=== PATIENT | female | born 1945 | race Caucasian/White ===

== ENCOUNTER → 2017-02-17 | Day surgery (SDC) | payer MEDICARE ==
[~2017-02-17] VITALS: Ht 154.9 cm; Wt 97.0 kg
[~2017-02-17] MED LIST: 0.9% Sodium Chloride 1,000 ML IV SCH; ACET325T51 PO; OMEP20TA86 PO; Sodium Chloride LOK Flush 10 mL Syringe IV PRN; fentaNYL-PF 50 mCg/mL 2 mL Inj IVPUSH PRN
[2017-02-17 12:17] VITALS: BP 149/87; PULSE 76; RESP 16; O2SAT 99
[2017-02-17 12:56] VITALS: BP 105/72; PULSE 68; RESP 15; O2SAT 96
[2017-02-17 13:06] VITALS: BP 114/61; PULSE 62; RESP 15; O2SAT 95
[2017-02-17 13:24] VITALS: BP 124/60; PULSE 65; RESP 15; O2SAT 96
--- NOTE | 2017-02-17 13:38 | ENDO ---
[address] [address] ENDOSCOPY PROCEDURE PATIENT: SELAM GROVER : 1945 MR#: [id number] ADMIT: 02/17/2017 JOB ID: [id number] DATE OF SERVICE: 02/17/2017 OPERATION: Esophagogastroduodenoscopy with biopsy. PREOPERATIVE DIAGNOSIS(ES): Epigastric pain. POSTOPERATIVE DIAGNOSIS(ES): Small hiatal hernia. ANESTHESIA: Fentanyl 75 mcg and Versed 4 mg IV administered. COMPLICATIONS: None. BLOOD LOSS: Minimal. DESCRIPTION OF PROCEDURE: After risks and benefits explained to the patient, informed consent was obtained. After anesthesia administered, upper endoscope was inserted into the mouth and intubated the esophagus, stomach, second portion of duodenum. Mucosa carefully examined. After procedure was done, the scope withdrawn and procedure terminated. FINDINGS: Upon inspection of the esophagus, esophagus was normal without masses, ulcers, or lesions. Z-line located 35 cm from incisors. Upon entry in the stomach, the stomach was normal without masses, ulcers, or lesions. Retroflexion showed small hiatal hernia. Duodenal bulb, first, second and third portion antrum and body of the stomach. IMPRESSION: Small hiatal hernia. RECOMMENDATION: Await pathology results. Follow up in GI clinic as needed.
--- NOTE | 2017-02-20 13:38 | PATH ---
SURGICAL PATHOLOGY Attending Physician:Marquez Scherer MD CASE STATUS: Signed Out PATIENT NAME: SELAM GROVER PID: [id number] : 1945 DATE COLLECTED:02/17/2017 21:57 SPECIMEN: 1: Stomach, Antrum, Biopsy 2: Gastric, Biopsy CLINICAL HISTORY: RULE OUT H.PYLORI 1). ANTRUM BIOPSY 2). GASTRIC BODY BIOPSY FINAL DIAGNOSIS: 1. Antrum, Biopsy: Gastric antral mucosa with reactive gastropathy. Negative for Helicobacter organisms by immunohistochemistry. Negative for intestinal metaplasia, dysplasia or malignancy. 2. Gastric Body, Biopsy: Gastric body mucosa with no diagnostic abnormality. Negative for Helicobacter organisms by immunohistochemistry. Negative for intestinal metaplasia, dysplasia or malignancy. ICD10: R10.13 GROSS DESCRIPTION: The specimen is received in two formalin filled containers labeled with the patient's name. 1). The specimen is labeled "antrum" and consists of a 0.3 x 0.2 x 0.2 CM portion of tissue which is entirely submitted in cassette 1A. 2). The specimen is labeled "gastric body" and consists of 3 portions of tissue which aggregate to 0.3 x 0.2 x 0.2 CM. The specimen is entirely submitted in cassette 2A. 02/17/2017DC MICRO DESCRIPTION: Part 1: An immunohistochemical stain was performed to evaluate for Helicobacter organisms and is negative. A control stain showed appropriate reactivity. * This test was developed and its performance characteristics determined by [facility]. It has not been cleared or approved by the U.S. Food and Drug Administration. The FDA has determined that such clearance or approval is not necessary. This test is used for clinical purposes. It should not be regarded as investigational or for research. ICD-9 CODES: CPT CODES: 1: 41978, 91851 2: 58515 Electronically Signed Out Ronen Muniz MD, Ph.D. [facility] Pathology [facility] [place] [address] Technical component performed at [facility], [facility] [address], [address]
== END | disposition home or self-care (01) ==
LOC: END 00:46
PROVIDERS: ATTEND Internal Medicine Gastroenterology
DX: K31.9 Disease of stomach and duodenum, unspecified (principal); K44.9 Diaphragmatic hernia without obstruction or gangrene; R10.13 Epigastric pain; R93.3 Abnormal findings on diagnostic imaging of other parts of digestive tract; M48.02 Spinal stenosis, cervical region; E78.00 Pure hypercholesterolemia, unspecified; E66.9 Obesity, unspecified; Z68.39 Body mass index [BMI] 39.0-39.9, adult
CPT/HCPCS: 43239; G0500; J2250; J3010; J7030